=== PATIENT | female | born 1965 | race Asian ===

== ENCOUNTER 2017-05-23 05:32 | Day surgery (SDC) | payer OTHER ==
[2017-05-22 13:23] VITALS: Ht 152.4 cm; Wt 60.0 kg
[2017-05-23] VITALS (10 sets, daily range): BP systolic 104–129; BP diastolic 63–75; PULSE 68–85; RESP 12–19
[~2017-05-23] VITALS: Ht 152.4 cm; Wt 60.0 kg
[2017-05-23] MEDS ORDERED: CEFAZOLIN 1 GM INJ ONE (07:00)
[2017-05-23] MEDS ORDERED: LABETALOL HCL 20MG INJ IV PRN (07:30)
[2017-05-23] MEDS ORDERED: hydrALAzine 20 MG INJ IV PRN (07:30)
[2017-05-23] MEDS ORDERED: ONDANSETRON 4 MG INJ IV PRN (07:30)
[2017-05-23] MEDS ORDERED: MEPERIDINE 25 MG INJ IV PRN (07:30)
[2017-05-23] MEDS ORDERED: FENTAnyl 50 MCG/ML VIAL IV PRN (07:30)
[2017-05-23] MEDS ORDERED: EPHEDrine SULFATE 50 MG/5 ML SYG IV PRN (07:30)
[2017-05-23] MEDS ORDERED: DIPHENHYDRAMINE 50 MG INJ IV PRN (07:30)
[2017-05-23] MEDS ORDERED: morphine (1 MG/ML) 10ML SYRINGE IV PRN ×3 (07:30)
[2017-05-23] MEDS ORDERED: OXYCODONE/ACETAMINOPHEN (5/325) TAB PO PRN ×2 (07:30)
[2017-05-23] MEDS ORDERED: HYDROmorphONE (0.2 MG/ML) 10ML SYG IV PRN ×3 (07:30)
[2017-05-23] MEDS ORDERED: ATROPINE 1 MG/10 ML SYRINGE IV PRN (07:30)
[2017-05-23] MEDS ORDERED: MIDAZOLAM 1 MG/ML 2 ML INJ IV PRN (07:30)
[2017-05-23] MEDS ORDERED: GLYCOPYRROLATE 0.4 MG INJ ONE (07:49)
[2017-05-23] MEDS ORDERED: LIDOCAINE 2% (SDV) 5 ML INJ ONE (07:49)
[2017-05-23] MEDS ORDERED: NEOSTIGMINE 3 MG/3 ML SYRINGE ONE (07:49)
[2017-05-23] MEDS ORDERED: ROCURONIUM 50 MG INJ ONE (07:49)
[2017-05-23] MEDS ORDERED: FENTAnyl 50 MCG/ML VIAL ONE (07:49)
[2017-05-23] MEDS ORDERED: PROPOFOL 20 ML ONE (07:49)
[2017-05-23] MEDS ORDERED: MIDAZOLAM 1 MG/ML 2 ML INJ ONE (07:49)
[2017-05-23] MEDS ORDERED: ONDANSETRON 4 MG INJ ONE (07:50)
[2017-05-23] MEDS ORDERED: LACTATED RINGER'S 1,000 ML IV SCH (08:30)
[2017-05-23] MEDS: FENTAnyl 50 MCG/ML VIAL IV PRN ×2 (10:34→10:44)
[2017-05-23] MEDS ORDERED: ACETAMINOPHEN 325 MG TAB PO PRN (11:00)
--- NOTE | 2017-05-23 17:14 | RADRPT ---
Vent Rate: 66 bpm RR Interval: 0 msec OR Interval: 132 msec QRS Duration: 74 msec QT Interval: 390 msec QTC Interval: 408 msec P-R-T [place]: 37 - 24 - 31 degrees Normal sinus rhythm Low voltage QRS Borderline ECG Electronically Signed By: Jed Heard [id number]
--- NOTE | 2017-05-24 08:39 | PREOPHP ---
DATE OF ADMISSION: 05/23/2017 HISTORY OF PRESENT ILLNESS: This is a 51-year-old lady, 2, para 2. Her last normal menstrual period was a few days prior to admission. The patient is still having her periods and at times heavy. The ultrasound in the clinic showed endometrial thickening. She had endometrial biopsy and showed complex hyperplasia with atypia, so she was admitted for D and C, hysteroscopy and suction curettage. The procedures were explained to the patient and she understood everything totally. The risks and benefits and alternatives were discussed with her as well. PAST MEDICAL HISTORY: No history of diabetes, TB, asthma. ALLERGIES: NO ALLERGIES. SOCIAL HISTORY: The patient does not smoke. She does not drink. MEDICATIONS: She does not take any drugs except for her cholesterol and migraine. 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 She is 2, para 2 with 1 normal delivery and 1 . FAMILY HISTORY: Mother has arthritis. REVIEW OF SYSTEMS: CARDIOVASCULAR: No chest pain. RESPIRATORY: No cough. GASTROINTESTINAL: No diarrhea. No vomiting. GENITOURINARY: No dysuria. PHYSICAL EXAMINATION: GENERAL: Conscious, coherent lady, not in acute distress. VITAL SIGNS: Blood pressure 120/80, pulse rate 80 per minute, respirations 16 per minute. BREASTS: Within normal limits. CARDIAC: Heart within normal limits. LUNGS: Within normal limits. ABDOMEN: Soft. No organomegaly. GENITOURINARY: Pelvic exam revealed the cervix to be firm. Uterus of normal size. Adnexa were negative for masses. Rectal exam confirmed the pelvic findings. EXTREMITIES: No pedal edema. DIAGNOSIS: Complex hyperplasia with atypia. Rule out carcinoma. PLAN: The patient is planned to have the above procedures. Dictated By: Nichol Brown MD /ryan/ /Document#: [id number]
--- NOTE | 2017-05-31 04:29 | OPR ---
DATE OF OPERATION: 05/23/2017 PREOPERATIVE DIAGNOSES: 1. Postmenopausal bleeding. 2. Atypical endometrial hyperplasia per endometrial biopsy. POSTOPERATIVE DIAGNOSIS: Pending pathology report. SURGEON: Nichol Brown MD. 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 ANESTHESIA: General. OPERATION PERFORMED: Fractional dilation and curettage, hysteroscopy and suction curettage. OPERATIVE PROCEDURE: Under general anesthesia the patient was prepped and draped in the usual fashion for vaginal surgery. Pelvis exam under anesthesia revealed the pelvis to be firm, uterus of normal size and adnexa were negative for masses. Then the heavyweight vaginal retractor was put in place and the anterior lip of the cervix was grasped with an Allis clamp and the cervical dilatation of the . The uterus was sounded to about 3 inches, then the hysteroscope was inserted inside the uterine cavity and connected with the light source. The uterus was distended with normal saline. There were no polyps or fibroids seen, and the cervical curettage was performed. A small amount of tissue was obtained. Endometrial curettage was performed and a lot of uterine tissue was obtained, this was followed by suction curettage. A size 7 was inserted inside the uterine cavity and suction curettage was done, a good amount of tissue was obtained. The uterus was [____] during and after the procedure. The patient tolerated the procedure well. Estimated blood loss was minimal. Vital signs were stable during and after the procedure. Dictated By: Nichol Brown MD /[email or web address]/olya /Document#: [id number] CC: Nichol Brown MD;*[facility]*
== END 2017-05-23 12:05 | disposition home or self-care (01) ==
LOC: SDS 05:32
PROVIDERS: ATTEND Obstetrics & Gynecology
DX: C54.1 Malignant neoplasm of endometrium (principal); N72 Inflammatory disease of cervix uteri; N95.0 Postmenopausal bleeding; Z82.61 Family history of arthritis
CPT/HCPCS: 58558; 84703; 86850; 86900; 86901; 88305; 93005; J0690; J2175; J2250; J2405; J2710; J3010